=== PATIENT | female | born 1965 | race Caucasian/White ===

== ENCOUNTER 2021-05-12 16:35 | Inpatient (IN) | payer BC ==
[~2021-05-12] VITALS: Ht 157.5 cm; Wt 99.3 kg
[2021-05-12] MEDS ORDERED: ASPIRIN 81 MG CHEW TAB PO STA (16:50)
[2021-05-12] MEDS ORDERED: ASPIRIN 81 MG CHEW TAB PO ONE (17:00)
[2021-05-12 17:08] LABS: BASOPHILS # (AUTO) 0.1 (0.0-0.1); BASOPHILS % 0.5 % (0.0-1.0); EOSINOPHILS # (AUTO) 0.4 (0.0-0.4); EOSINOPHILS % 4.7 % (0.0-6.0); HEMOGLOBIN 12.4 g/dL (12.0-16.0); LYMPHOCYTES # (AUTO) 2.5 (1.0-3.2); LYMPHOCYTES % 27.8 % (18.0-39.1); MEAN CORPUSCULAR HEMOGLOBIN 30.9 pg (28-32); MEAN CORPUSCULAR HGB CONC 32.6 g/dL (31-35); MEAN CORPUSCULAR VOLUME 94.8 fL (81-99); MONOCYTES # (AUTO) 0.5 (0.2-0.8); MONOCYTES % 5.6 % (4.4-11.3); NEUTROPHILS # (AUTO) 5.6 (2.1-6.9); NEUTROPHILS % 61.1 % (38.7-80.0); PLATELET COUNT 265 x10e3/uL (140-360); RED BLOOD COUNT 4.01 x10e6/uL (3.6-5.1); RED CELL DISTRIBUTION WIDTH 12.9 % (11.7-14.4)
[2021-05-12 17:13] LABS: INR 0.97; PROTHROMBIN TIME 13.3 seconds (11.9-14.5)
[2021-05-12] MEDS ORDERED: DILTIAZEM HCL 5 MG/ML 5 ML VIAL IV ONE (17:15)
[2021-05-12 17:20] LABS: ALBUMIN 3.7 g/dL (3.5-5.0); ALBUMIN/GLOBULIN RATIO 1.2 (0.8-2.0); ANION GAP 11.8 mmol/L (8-16); CREATININE, SERUM 0.8 mg/dL (0.57-1.11); POTASSIUM 3.8 mmol/L (3.5-5.1)
[2021-05-12] MEDS ORDERED: DILTIAZEM HCL VIAL 5 ML ONE (17:24)
[2021-05-12] MEDS: ENOXAPARIN SODIUM INJ 100 MG/ML SYR SC SCH (17:25)
[2021-05-12 17:27] LABS: CREATINE KINASE MB 1.1 ng/mL (0-5.0)
[2021-05-12] MEDS ORDERED: AMIODARONE HCL 150 MG in DEXTROSE 5% 100ML 100 ML IV SCH (17:45)
[2021-05-12] MEDS ORDERED: AMIODARONE HCL 150 MG/100 ML BAG IV ONE (17:45)
[2021-05-12] MEDS ORDERED: AMIODARONE 900MG 500 ML IV ONE (17:45)
[2021-05-12] MEDS ORDERED: DEXTROSE 50% SYRINGE 50 ML IV PRN (19:30)
[2021-05-12] MEDS ORDERED: SODIUM CHLORIDE FLUSH 10 ML SYR INJ PRN (19:30)
[2021-05-12] MEDS ORDERED: ONDANSETRON HCL INJ 2MG/ML 2ML 2 MG/ML VIAL IV PRN (19:30)
[2021-05-12] MEDS: INSULIN REGULAR, HUMAN 100 UNIT/1 ML SQ SCH (21:00)
[2021-05-12 23:00] VITALS: BP 126/84
[2021-05-12 23:23] VITALS: BP 126/84
[2021-05-13] VITALS (20 sets, daily range): BP systolic 106–157; BP diastolic 77–102
[2021-05-13] MEDS ORDERED: LEVEMIR FL100 UNIT/1 SC (00:05)
[2021-05-13] MEDS ORDERED: DAPAGLIFLOZIN (00:05)
[2021-05-13] MEDS ORDERED: OZEMPIC0.25 MG/0. SC (00:05)
[2021-05-13] MEDS ORDERED: JARDIANCE25 MG PO (00:05)
[2021-05-13] MEDS ORDERED: COREG3.125 MG PO (00:05)
[2021-05-13] MEDS ORDERED: CRESTOR10 MG PO (00:05)
[2021-05-13] MEDS ORDERED: LOSARTAN POTASS25 MG PO (00:05)
[2021-05-13 03:59] LABS: BASOPHILS % 0.5 % (0.0-1.0); EOSINOPHILS # (AUTO) 0.4 (0.0-0.4); EOSINOPHILS % 4.7 % (0.0-6.0); HEMATOCRIT 35.9 % (34.2-44.1); HEMOGLOBIN 11.4 g/dL (12.0-16.0); LYMPHOCYTES # (AUTO) 3.1 (1.0-3.2); LYMPHOCYTES % 35.3 % (18.0-39.1); MEAN CORPUSCULAR HEMOGLOBIN 30.6 pg (28-32); MEAN CORPUSCULAR HGB CONC 31.8 g/dL (31-35); MEAN CORPUSCULAR VOLUME 96.2 fL (81-99); MONOCYTES # (AUTO) 0.5 (0.2-0.8); MONOCYTES % 5.7 % (4.4-11.3); NEUTROPHILS # (AUTO) 4.7 (2.1-6.9); NEUTROPHILS % 53.5 % (38.7-80.0); PLATELET COUNT 224 x10e3/uL (140-360); RED BLOOD COUNT 3.73 x10e6/uL (3.6-5.1); RED CELL DISTRIBUTION WIDTH 13.1 % (11.7-14.4)
[2021-05-13 04:18] LABS: ALBUMIN 3.4 g/dL (3.5-5.0); ALBUMIN/GLOBULIN RATIO 1.2 (0.8-2.0); ANION GAP 13.8 mmol/L (8-16); CALCIUM 8.6 mg/dL (8.4-10.2); CHOL/HDL RATIO 2.9 (3.0-3.6); CREATININE, SERUM 0.67 mg/dL (0.57-1.11); POTASSIUM 3.8 mmol/L (3.5-5.1)
[2021-05-13 04:25] LABS: CREATINE KINASE MB 0.8 ng/mL (0-5.0)
[2021-05-13] MEDS: ENOXAPARIN SODIUM INJ 100 MG/ML SYR SC SCH (05:39)
[2021-05-13] MEDS: INSULIN REGULAR, HUMAN 100 UNIT/1 ML SQ SCH ×4 (07:30→20:36)
[2021-05-13] MEDS: AMIODARONE HCL 200 MG TAB PO SCH ×2 (10:45→17:01)
[2021-05-13] MEDS ORDERED: FUROSEMIDE INJ 10 MG/ML 4 ML VIAL IV ONE (10:45)
[2021-05-13] MEDS: APIXABAN 5 MG TABLET PO SCH ×2 (11:00→17:01)
[2021-05-13] MEDS: LOSARTAN POTASSIUM 25 MG TAB PO SCH (11:00)
[2021-05-13] MEDS: SIMVASTATIN 40 MG TAB PO SCH (11:00)
[2021-05-13 12:27] LABS: CREATINE KINASE MB 0.7 ng/mL (0-5.0)
[2021-05-13] MEDS: METOPROLOL TARTRATE 25 MG TAB PO SCH ×2 (12:28→17:02)
[2021-05-13] MEDS ORDERED: DIGOXIN INJ 0.25 MG/ML 2 ML AMP IV STA (13:40)
[2021-05-13] MEDS ORDERED: DIGOXIN INJ 0.25 MG/ML 2 ML AMP IV ONE (15:30)
[2021-05-13] MEDS: INSULIN GLARGINE 100 UNITS/ML VIAL SQ SCH (17:03)
[2021-05-13] MEDS ORDERED: METOPROLOL TARTRATE 25 MG TAB PO ONE (18:45)
[2021-05-13] MEDS ORDERED: AMIODARONE 900MG 500 ML IV ONE (18:45)
[2021-05-13] MEDS ORDERED: AMIODARONE HCL 150 MG/100 ML BAG IV ONE (18:45)
[2021-05-14] VITALS (24 sets, daily range): BP systolic 105–156; BP diastolic 51–113
[2021-05-14] MEDS: METOPROLOL TARTRATE 25 MG TAB PO SCH ×5 (00:24→21:30)
[2021-05-14 05:44] LABS: BASOPHILS # (AUTO) 0.1 (0.0-0.1); BASOPHILS % 0.4 % (0.0-1.0); EOSINOPHILS # (AUTO) 0.2 (0.0-0.4); EOSINOPHILS % 1.4 % (0.0-6.0); HEMATOCRIT 37.8 % (34.2-44.1); HEMOGLOBIN 12.4 g/dL (12.0-16.0); LYMPHOCYTES # (AUTO) 2.5 (1.0-3.2); LYMPHOCYTES % 19.1 % (18.0-39.1); MEAN CORPUSCULAR HEMOGLOBIN 30.8 pg (28-32); MEAN CORPUSCULAR HGB CONC 32.8 g/dL (31-35); MEAN CORPUSCULAR VOLUME 93.8 fL (81-99); MONOCYTES % 7.7 % (4.4-11.3); NEUTROPHILS # (AUTO) 9.4 (2.1-6.9); NEUTROPHILS % 71.1 % (38.7-80.0); PLATELET COUNT 234 x10e3/uL (140-360); RED BLOOD COUNT 4.03 x10e6/uL (3.6-5.1); RED CELL DISTRIBUTION WIDTH 12.9 % (11.7-14.4)
[2021-05-14 06:06] LABS: ALBUMIN 3.2 g/dL (3.5-5.0); ANION GAP 15.3 mmol/L (8-16); CALCIUM 8.5 mg/dL (8.4-10.2); CREATININE, SERUM 0.64 mg/dL (0.57-1.11); POTASSIUM 3.3 mmol/L (3.5-5.1)
[2021-05-14] MEDS: INSULIN REGULAR, HUMAN 100 UNIT/1 ML SQ SCH ×5 (07:30→20:56)
[2021-05-14] MEDS: SIMVASTATIN 40 MG TAB PO SCH (08:33)
[2021-05-14] MEDS: LOSARTAN POTASSIUM 25 MG TAB PO SCH (08:33)
[2021-05-14] MEDS: AMIODARONE HCL 200 MG TAB PO SCH ×2 (08:33→16:05)
[2021-05-14] MEDS: APIXABAN 5 MG TABLET PO SCH ×2 (08:33→16:05)
[2021-05-14] MEDS: INSULIN GLARGINE 100 UNITS/ML VIAL SQ SCH ×2 (08:34→16:32)
[2021-05-14] MEDS ORDERED: SIMVASTATIN 40 MG TAB PO SCH (09:00)
[2021-05-14] MEDS ORDERED: CARVEDILOL 3.125 MG TAB PO SCH (09:00)
[2021-05-14] MEDS ORDERED: LOSARTAN POTASSIUM 25 MG TAB PO SCH (09:00)
[2021-05-14] MEDS ORDERED: POTASSIUM CHLORIDE 10MEQ EA PO ONE (10:45)
[2021-05-15] VITALS (14 sets, daily range): BP systolic 107–151; BP diastolic 45–104
[2021-05-15 05:05] LABS: BASOPHILS # (AUTO) 0.1 (0.0-0.1); BASOPHILS % 0.4 % (0.0-1.0); EOSINOPHILS # (AUTO) 0.2 (0.0-0.4); EOSINOPHILS % 2.1 % (0.0-6.0); HEMATOCRIT 38.6 % (34.2-44.1); HEMOGLOBIN 12.4 g/dL (12.0-16.0); LYMPHOCYTES # (AUTO) 2.6 (1.0-3.2); LYMPHOCYTES % 22.4 % (18.0-39.1); MEAN CORPUSCULAR HEMOGLOBIN 30.7 pg (28-32); MEAN CORPUSCULAR HGB CONC 32.1 g/dL (31-35); MEAN CORPUSCULAR VOLUME 95.5 fL (81-99); MONOCYTES % 8.5 % (4.4-11.3); NEUTROPHILS # (AUTO) 7.5 (2.1-6.9); NEUTROPHILS % 66.2 % (38.7-80.0); PLATELET COUNT 237 x10e3/uL (140-360); RED BLOOD COUNT 4.04 x10e6/uL (3.6-5.1); RED CELL DISTRIBUTION WIDTH 13.2 % (11.7-14.4)
[2021-05-15 05:42] LABS: ALBUMIN 3.1 g/dL (3.5-5.0); ALBUMIN/GLOBULIN RATIO 0.9 (0.8-2.0); ANION GAP 13.6 mmol/L (8-16); CALCIUM 8.7 mg/dL (8.4-10.2); CREATININE, SERUM 0.61 mg/dL (0.57-1.11); POTASSIUM 3.6 mmol/L (3.5-5.1)
[2021-05-15] MEDS: METOPROLOL TARTRATE 25 MG TAB PO SCH ×2 (06:00→07:39)
[2021-05-15] MEDS: INSULIN REGULAR, HUMAN 100 UNIT/1 ML SQ SCH ×3 (07:17→17:00)
[2021-05-15] MEDS: APIXABAN 5 MG TABLET PO SCH ×2 (08:00→17:01)
[2021-05-15] MEDS: AMIODARONE HCL 200 MG TAB PO SCH ×2 (08:00→17:01)
[2021-05-15] MEDS: INSULIN GLARGINE 100 UNITS/ML VIAL SQ SCH ×2 (08:00→17:02)
[2021-05-15] MEDS: SIMVASTATIN 40 MG TAB PO SCH (08:00)
[2021-05-15] MEDS ORDERED: LOSARTAN POTASSIUM 25 MG TAB PO SCH (09:00)
[2021-05-15] MEDS ORDERED: BENZOCAINE 20% SPR 60 ML CAN ONE (10:15)
[2021-05-15] MEDS ORDERED: SODIUM CHLORIDE 0.9% 1000ML 1,000 ML ONE (10:16)
[2021-05-15] MEDS ORDERED: AMIODARONE HCL200 MG PO (17:13)
[2021-05-15] MEDS ORDERED: ELIQUIS5 MG PO (17:13)
== END 2021-05-15 17:45 | disposition home or self-care (01) | DRG 308 ==
LOC: ER 16:42 → ERHOLD 20:00 → ICU 22:35 → IMCU 05-15 13:01
PROC: 5A2204Z Restoration of Cardiac Rhythm, Single (ICD-10-PCS; principal; 2021-05-15)
DX: I48.91 Unspecified atrial fibrillation (principal); I50.33 Acute on chronic diastolic (congestive) heart failure; Z68.41 Body mass index [BMI] 40.0-44.9, adult; I11.0 Hypertensive heart disease with heart failure; E11.9 Type 2 diabetes mellitus without complications; E78.5 Hyperlipidemia, unspecified; Z20.822 Contact with and (suspected) exposure to COVID-19; Z86.73 Personal history of transient ischemic attack (TIA), and cerebral infarction without residual deficits; R60.0 Localized edema; E66.01 Morbid (severe) obesity due to excess calories
CPT/HCPCS: 36415; 71045; 80053; 80061; 82550; 82553; 82948; 83735; 83880; 84484; 85025; 85610; 85730; 93005; 93306; 93307; 93312; 93325; 96361; 96372; 99284; J1160; J1650; J1815; J1817; J1940; J7030; U0002

== ENCOUNTER 2021-06-08 10:07 | Inpatient (IN) | payer BC ==
[~2021-06-08] VITALS: Ht 157.5 cm; Wt 98.6 kg
[~2021-06-08 10:07] MED LIST: AMIODARONE HCL200 MG PO; COREG3.125 MG PO; CRESTOR10 MG PO; DAPAGLIFLOZIN; ELIQUIS5 MG PO; JARDIANCE25 MG PO; LEVEMIR FL100 UNIT/1 SC; LOSARTAN POTASS25 MG PO; OZEMPIC0.25 MG/0. SC
[2021-06-08] MEDS ORDERED: ASPIRIN 81 MG CHEW TAB PO ONE (10:45)
[2021-06-08] MEDS ORDERED: SODIUM CHLORIDE 0.9% 1000ML 1,000 ML IV STA (10:46)
[2021-06-08 10:55] LABS: BASOPHILS # (AUTO) 0.1 (0.0-0.1); BASOPHILS % 0.8 % (0.0-1.0); EOSINOPHILS # (AUTO) 0.9 (0.0-0.4); HEMATOCRIT 43.2 % (34.2-44.1); HEMOGLOBIN 13.8 g/dL (12.0-16.0); LYMPHOCYTES # (AUTO) 1.9 (1.0-3.2); LYMPHOCYTES % 20.4 % (18.0-39.1); MEAN CORPUSCULAR HEMOGLOBIN 29.7 pg (28-32); MEAN CORPUSCULAR HGB CONC 31.9 g/dL (31-35); MEAN CORPUSCULAR VOLUME 93.1 fL (81-99); MONOCYTES # (AUTO) 0.5 (0.2-0.8); MONOCYTES % 5.3 % (4.4-11.3); NEUTROPHILS # (AUTO) 5.9 (2.1-6.9); NEUTROPHILS % 63.2 % (38.7-80.0); PLATELET COUNT 248 x10e3/uL (140-360); RED BLOOD COUNT 4.64 x10e6/uL (3.6-5.1); RED CELL DISTRIBUTION WIDTH 13.1 % (11.7-14.4)
[2021-06-08] MEDS ORDERED: DILTIAZEM HCL 5 MG/ML 5 ML VIAL IV ONE (11:00)
[2021-06-08 11:12] LABS: ALBUMIN 4.1 g/dL (3.5-5.0); ALBUMIN/GLOBULIN RATIO 1.2 (0.8-2.0); CALCIUM 8.9 mg/dL (8.4-10.2); CREATININE, SERUM 0.72 mg/dL (0.57-1.11); INR 1.03; PROTHROMBIN TIME 14.3 seconds (11.9-14.5)
[2021-06-08 11:13] LABS: PARTIAL THROMBOPLASTIN TIME 28.9 seconds (23.8-35.5)
[2021-06-08 11:19] LABS: CREATINE KINASE MB 0.7 ng/mL (0-5.0)
[2021-06-08] MEDS ORDERED: IOPAMIDOL 370 MG/ML 200 ML INFUS..BTL INJ ONE (11:31)
[2021-06-08] MEDS ORDERED: SODIUM CHLORIDE 0.9% 50ML 50 ML ONE (11:31)
[2021-06-08] MEDS ORDERED: METOPROLOL TARTRATE INJ 1 MG/ML VIAL IV ONE (12:45)
[2021-06-08] MEDS: SODIUM CHLORIDE 0.9% 1000ML 1,000 ML IV SCH ×2 (13:03→21:00)
[2021-06-08 19:30] VITALS: BP 143/75
[2021-06-08 20:37] VITALS: BP 143/75
[2021-06-08] MEDS ORDERED: FARXIGA10 MG (20:47)
[2021-06-08] MEDS ORDERED: LOSARTAN POTASS25 MG PO (20:48)
[2021-06-08 21:00] VITALS: BP 143/97
[2021-06-08] MEDS: METOPROLOL TARTRATE 25 MG TAB PO SCH (23:19)
[2021-06-09] VITALS (8 sets, daily range): BP systolic 144–159; BP diastolic 91–116
[2021-06-09 04:57] LABS: BASOPHILS # (AUTO) 0.1 (0.0-0.1); BASOPHILS % 0.5 % (0.0-1.0); EOSINOPHILS # (AUTO) 0.9 (0.0-0.4); EOSINOPHILS % 9.3 % (0.0-6.0); LYMPHOCYTES # (AUTO) 2.3 (1.0-3.2); LYMPHOCYTES % 24.2 % (18.0-39.1); MEAN CORPUSCULAR HEMOGLOBIN 29.8 pg (28-32); MEAN CORPUSCULAR HGB CONC 31.6 g/dL (31-35); MEAN CORPUSCULAR VOLUME 94.3 fL (81-99); MONOCYTES # (AUTO) 0.6 (0.2-0.8); MONOCYTES % 6.1 % (4.4-11.3); NEUTROPHILS # (AUTO) 5.6 (2.1-6.9); NEUTROPHILS % 59.7 % (38.7-80.0); PLATELET COUNT 228 x10e3/uL (140-360); RED BLOOD COUNT 4.03 x10e6/uL (3.6-5.1); RED CELL DISTRIBUTION WIDTH 12.9 % (11.7-14.4)
[2021-06-09 05:15] LABS: ANION GAP 12.5 mmol/L (8-16); CALCIUM 8.1 mg/dL (8.4-10.2); CREATININE, SERUM 0.63 mg/dL (0.57-1.11); POTASSIUM 3.5 mmol/L (3.5-5.1)
[2021-06-09] MEDS: SODIUM CHLORIDE 0.9% 1000ML 1,000 ML IV SCH (05:17)
[2021-06-09] MEDS: INSULIN GLARGINE 100 UNITS/ML VIAL SC SCH ×2 (08:30→17:06)
[2021-06-09] MEDS: AMIODARONE HCL 200 MG TAB PO SCH ×2 (09:11→17:05)
[2021-06-09] MEDS: APIXABAN 5 MG TABLET PO SCH ×2 (09:15→17:05)
[2021-06-09] MEDS: SIMVASTATIN 20 MG TAB PO SCH (09:21)
[2021-06-09] MEDS: METOPROLOL TARTRATE 25 MG TAB PO SCH ×3 (09:21→17:05)
[2021-06-09] MEDS ORDERED: DIGOXIN 0.125 MG TAB PO ONE (11:30)
[2021-06-09] MEDS ORDERED: DEXTROSE 50% SYRINGE 50 ML IV PRN (12:15)
[2021-06-09] MEDS: INSULIN REGULAR, HUMAN 100 UNIT/1 ML SQ SCH ×2 (17:03→20:43)
[2021-06-10] MEDS: METOPROLOL TARTRATE 25 MG TAB PO SCH ×3 (00:19→12:56)
[2021-06-10 04:00] VITALS: BP 152/94
[2021-06-10 04:28] VITALS: BP 152/94
[2021-06-10 07:26] VITALS: BP 139/101
[2021-06-10 07:29] VITALS: BP 139/101
[2021-06-10] MEDS: INSULIN REGULAR, HUMAN 100 UNIT/1 ML SQ SCH ×2 (07:30→11:30)
[2021-06-10] MEDS: INSULIN GLARGINE 100 UNITS/ML VIAL SC SCH (07:44)
[2021-06-10] MEDS: APIXABAN 5 MG TABLET PO SCH (07:53)
[2021-06-10] MEDS: AMIODARONE HCL 200 MG TAB PO SCH (07:53)
[2021-06-10] MEDS: SIMVASTATIN 20 MG TAB PO SCH (07:53)
[2021-06-12] MEDS ORDERED: NON-FORMULARY MEDICATION (Semaglutide (Ozempic) 0.5 MG) SQ SCH (09:00)
== END 2021-06-10 13:08 | disposition home or self-care (01) | DRG 309 ==
LOC: ER 10:15 → ERHOLD 12:43 → IMCU 19:30
PROVIDERS: ADMIT Internal Medicine; ATTEND Internal Medicine
DX: I48.19 Other persistent atrial fibrillation (principal); I31.3 Pericardial effusion (noninflammatory); I10 Essential (primary) hypertension; E11.9 Type 2 diabetes mellitus without complications; Z86.73 Personal history of transient ischemic attack (TIA), and cerebral infarction without residual deficits; R00.2 Palpitations; I25.10 Atherosclerotic heart disease of native coronary artery without angina pectoris; E78.5 Hyperlipidemia, unspecified
CPT/HCPCS: 36415; 71045; 71260; 80048; 80053; 82550; 82553; 82948; 83880; 84484; 85025; 85610; 85730; 93005; 94799; 96372; 99284; J1815; J1817; J7030; Q9967; U0002